=== PATIENT | female | born 1980 | race American Indian/Alaskan Native ===

== ENCOUNTER 2019-01-25 01:10 | Emergency (ER) | payer SELFPAY ==
[2019-01-25 01:24] VITALS: BP 181/101
== END 2019-01-25 06:00 | disposition left against medical advice (07) ==
LOC: ED 01:10
DX: R05 Cough (principal); Z53.21 Procedure and treatment not carried out due to patient leaving prior to being seen by health care provider

== ENCOUNTER 2019-05-18 13:06 | Emergency (ER) | payer SELFPAY ==
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
[2019-05-18 13:59] VITALS: BP 137/84
[2019-05-18] MEDS ORDERED: ACETAMINOPHEN 500 MG TAB PO ONE (13:59)
[2019-05-18] MEDS ORDERED: IBUPROFEN 600 MG TAB PO ONE (13:59)
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
== END 2019-05-18 15:00 | disposition left against medical advice (07) ==
LOC: ED 13:06
DX: O26.899 Other specified pregnancy related conditions, unspecified trimester (principal); M25.561 Pain in right knee
CPT/HCPCS: 99283

== ENCOUNTER 2021-06-03 11:22 | Outpatient (CLI) | payer OTHER ==
--- NOTE | 2021-06-03 13:36 | XRay Report ---
Lumbar spine INDICATION: Back pain FINDINGS: Alignment appears normal. Facet degenerative change L4-L5 and L5-S1. No subluxation. No acu te fracture. SI joints appear normal. Signer Name: Austin Carrington MD Signed: 06/03/2021 1:32 PM Workstation Name: [id number]
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
== END 2021-06-03 11:23 | disposition home or self-care (01) ==
LOC: XRAY 11:22
PROVIDERS: ATTEND Internal Medicine
DX: M47.817 Spondylosis without myelopathy or radiculopathy, lumbosacral region (principal); M25.571 Pain in right ankle and joints of right foot
CPT/HCPCS: 72100